=== PATIENT | female | born 1995 | race American Indian/Alaskan Native ===

== ENCOUNTER 2018-12-28 00:13 | Emergency (ER) | payer MEDICAID ==
[2018-12-28 00:48] VITALS: BMI 23.4
[2018-12-28 00:51] VITALS: BP 117/62; PULSE 73; RESP 13; TEMP 98.5
--- NOTE | 2018-12-28 01:04 | ED PDOC ---
Arrival/HPI - General Chief Complaint: Abnormal Skin Integrity Time Seen by Provider: 12/28/18 00:16 Historian: Patient - History of Present Illness Narrative History of Present Illness (Text): 12/28/18 00:56 23 y/o female, no significant pmh, nkda, c/o rt. pubic abscess x 3 days. Pt. stated that it started off as a small pimple, growing into painful abscess, no fever or chills, no night sweat, no rash, no numbness or tingling, no vaginal bleeding or discharge, no other medical or psychological complaints. Past Medical History - Provider Review Nursing Documentation Reviewed: Yes - Genitourinary/Gynecological Other/Comment: oavarian cyst - Psychiatric Hx Psychophysiologic Disorder: No Hx Substance Use: No - Anesthesia Hx Anesthesia: No Family/Social History - Physician Review Nursing Documentation Reviewed: Yes Family/Social History: Unknown Family HX Smoking Status: Unknown If Ever Smoked Hx Alcohol Use: No Hx Substance Use: No Allergies/Home Meds Allergies/Adverse Reactions: Allergies No Known Allergies Allergy (Verified 12/28/18 00:48) Review of Systems - Review of Systems Constitutional: absent: Fatigue, Fevers Eyes: absent: Vision Changes ENT: absent: Hearing Changes Respiratory: absent: SOB, Cough Cardiovascular: absent: Chest Pain Gastrointestinal: absent: Abdominal Pain, Diarrhea, Nausea, Vomiting Skin: Skin Lesions, Abscess. absent: Rash, Pruritis, Laceration, Ulcer, Cellulitis Neurological: absent: Headache, Dizziness Psychiatric: absent: Anxiety, Depression, Suicidal Ideation Physical Exam Vital Signs Reviewed: Yes Vital Signs Temp Pulse Resp BP Pulse Ox 12/28/18 00:50 98.5 F 73 13 117/62 10 L Temperature: Afebrile Blood Pressure: Normal Pulse: Regular Respiratory Rate: Normal Appearance: Positive for: Well-Appearing, Non-Toxic, Comfortable Pain Distress: Mild Mental Status: Positive for: Alert and Oriented X 3 - Systems Exam Head: Present: Atraumatic, Normocephalic Pupils: Present: PERRL Extroacular Muscles: Present: EOMI Conjunctiva: Present: Normal Mouth: Present: Moist Mucous Membranes Neck: Present: Normal Range of Motion Respiratory/Chest: Present: Clear to Auscultation, Good Air Exchange. No: Respiratory Distress, Accessory Muscle Use Cardiovascular: Present: Regular Rate and Rhythm, Normal S1, S2. No: Murmurs Abdomen: No: Tenderness, Distention, Peritoneal Signs Back: Present: Normal Inspection Upper Extremity: Present: Normal Inspection. No: Cyanosis, Edema Lower Extremity: Present: Normal Inspection. No: Edema Neurological: Present: GCS=15, CN II-XII Intact, Speech Normal Skin: Present: Warm, Dry, Rashes (rt. lateral pubic region noted to have [id number] fluctuancy abscess noted, no streaking or ulcers), Normal Color Psychiatric: Present: Alert, Oriented x 3, Normal Insight, Normal Concentration Medical Decision Making ED Course and Treatment: 12/28/18 01:05 -urine hcg -clindamycin -I&D 12/28/18 01:29 PROCEDURE: INCISION & DRAINAGE Performed by the emergency provider Indication: Abscess Location: rt. lateral pubic Preparation: The area was prepped and draped in the usual sterile fashion and was cleansed with betadine, clean with normal saline. Local infiltration of Lidocaine 1% with 1cc as used for anesthesia. Procedure: The most fluctuant portion of the abscess was incised with a #11 scalpel. Approximately 2 mL of was obtained. The abscess was packed 1/4" packing inserted. A dressing was applied by the RN. Post-Procedure: On exam the abscess is notably less fluctuant. The patient tolerated the procedure well, and there were no complications. -Urine hcg is negative -Discharge home with clindamycin, motrin, keep the dressing dry and clean, dressing and packing needs to be changed and checked in 2 days, return to the ER for any new or worsening signs or symptoms. - PA / MACHINE STEMMER / Resident Statement /DO has reviewed & agrees with the documentation as recorded. Disposition/Present on Arrival - Present on Arrival Any Indicators Present on Arrival: No History of DVT/PE: No History of Uncontrolled Diabetes: No Urinary Catheter: No History of Decub. Ulcer: No History Surgical Site Infection Following: None - Disposition Have Diagnosis and Disposition been Completed?: Yes Diagnosis: Abscess Disposition: HOME/ ROUTINE Disposition Time: :05 Patient Plan: Discharge Condition: IMPROVED Additional Instructions: -Discharge home with clindamycin, motrin, keep the dressing dry and clean, dressing and packing needs to be changed and checked in 2 days, return to the ER for any new or worsening signs or symptoms. Prescriptions: Clindamycin [Cleocin] 300 mg PO QID #28 cap Ibuprofen [Motrin] 600 mg PO QID PRN #30 tab PRN Reason: Other Referrals: Tashi Benitez MD [Staff Provider] - Follow up with primary [facility] [Outside] - Follow up with primary Forms: [employer] (Mongolian), WORK NOTE
[2018-12-28 01:44] VITALS: O2SAT 100
== END 2018-12-28 03:19 | disposition home or self-care (01) ==
LOC: ED 00:13
DX: L02.219 Cutaneous abscess of trunk, unspecified (principal)

== ENCOUNTER 2018-12-30 13:42 | Emergency (ER) | payer MEDICAID ==
[2018-12-30 13:57] VITALS: BP 104/73; PULSE 74; RESP 18; TEMP 98.5; O2SAT 96; BMI 23.0
--- NOTE | 2018-12-30 16:02 | ED PDOC ---
Arrival/HPI - General Chief Complaint: Medical Clearance Time Seen by Provider: 12/30/18 13:43 Historian: Patient - History of Present Illness Narrative History of Present Illness (Text): 12/30/18 15:58 A 23 year old female presents to the emergency department complaining of wound check. Patient had an I&D performed on abscess to the suprapubic region 2 days ago and was prescribed antibiotics. Patient any other complaints at this time. Past Medical History - Provider Review Nursing Documentation Reviewed: Yes - Infectious Disease Hx of Infectious Diseases: None - Genitourinary/Gynecological Other/Comment: oavarian cyst - Psychiatric Hx Psychophysiologic Disorder: No Hx Substance Use: No - Anesthesia Hx Anesthesia: No Family/Social History - Physician Review Nursing Documentation Reviewed: Yes Family/Social History: No Known Family HX Smoking Status: Unknown If Ever Smoked Hx Alcohol Use: No Hx Substance Use: No Allergies/Home Meds Allergies/Adverse Reactions: Allergies No Known Allergies Allergy (Verified 12/28/18 00:48) Review of Systems - Physician Review All systems were reviewed & negative as marked: Yes - Review of Systems Constitutional: absent: Fevers Skin: Other (wound check, no drainage) Physical Exam Vital Signs Reviewed: Yes Vital Signs Temp Pulse Resp BP Pulse Ox 12/30/18 13:56 98.5 F 74 18 104/73 96 Temperature: Afebrile Blood Pressure: Normal Pulse: Regular Respiratory Rate: Normal Appearance: Positive for: Well-Appearing, Non-Toxic, Comfortable Pain Distress: None Mental Status: Positive for: Alert and Oriented X 3 - Systems Exam Skin: Present: Abscess (small abscess right of suprapubic region with I&D packing, no discharge noted) Psychiatric: Present: Alert, Oriented x 3, Normal Insight, Normal Concentration Medical Decision Making ED Course and Treatment: 12/30/18 16:00 Impression: 23 year old female with wound check. Physical exam shows small abscess to right suprapubic region with I&D packing, no discharge noted. Plan: -- Reassess and disposition Progress Notes: 12/30/18 16:01 Packing was removed and wound checked. Patient has been strongly advised to take the antibiotics prescribed to her 2 days ago. Patient is to follow-up with clinic at the end of the week. - Scribe Statement The provider has reviewed the documentation as recorded by the Aimee Mcmahan Provider Scribe Attestation: All medical record entries made by the Scribe were at my direction and personally dictated by me. I have reviewed the chart and agree that the record accurately reflects my personal performance of the history, physical exam, medical decision making, and the department course for this patient. I have also personally directed, reviewed, and agree with the discharge instructions and disposition. Disposition/Present on Arrival - Present on Arrival Any Indicators Present on Arrival: No History of DVT/PE: No History of Uncontrolled Diabetes: No Urinary Catheter: No History of Decub. Ulcer: No History Surgical Site Infection Following: None - Disposition Have Diagnosis and Disposition been Completed?: Yes Diagnosis: Visit for wound check Disposition: HOME/ ROUTINE Disposition Time: 14:20 Condition: GOOD Discharge Instructions (ExitCare): Wound Care (DC) Additional Instructions: LOUIS GALLAGHER, thank you for letting us take care of you today. The emergency medical care you received today was directed at your acute symptoms. If you were prescribed any medication, please fill it and take as directed. It may take several days for your symptoms to resolve. Return to the Emergency Department if your symptoms worsen, do not improve, or if you have any other problems. Please contact your doctor or call one of the physicians/clinics you have been referred to that are listed on the Patient Visit Information form that is included in your discharge packet. Bring any paperwork you were given at discharge with you along with any medications you are taking to your follow up visit. Our treatment cannot replace ongoing medical care by a primary care provider outside of the emergency department. Thank you for allowing the [facility] team to be part of your care today. TAKE YOUR ANTIBIOTICS THAT YOU WERE ALREADY PRESCRIBED. Follow up with our clinic by the end of the week for re-evaluation and further management. Referrals: [facility] [Outside] - Follow up with primary Cinthya Uribe MD [Medical Doctor] - Follow up with primary Forms: [employer] (Indonesian)
== END 2018-12-30 14:58 | disposition home or self-care (01) ==
LOC: ED 13:42
DX: Z48.00 Encounter for change or removal of nonsurgical wound dressing (principal)

== ENCOUNTER 2019-01-06 05:49 | Emergency (ER) | payer MEDICAID ==
[2019-01-06 05:49] VITALS: BMI 23.0
--- NOTE | 2019-01-06 06:12 | ED PDOC ---
Arrival/HPI - General Chief Complaint: Back Pain Time Seen by Provider: 01/06/19 06:08 Historian: Patient - History of Present Illness Narrative History of Present Illness (Text): 01/06/19 06:08 Danie Ribeiro is a 23 year old female, with no significant past medical history, who presents to the ED complaining of intermittent right lower back pain for the past week, worse today. Patient notes back pain is worsened with moving and bending. Patient reports no heavy lifting/strenuous activity, does note she carries her young daughter frequently. Patient denies any fever, chills, nausea, vomiting, urinary symptoms, or any other complaints. Symptom Onset: Gradual Symptom Course: Unchanged Activities at Onset: Light Context: Home Past Medical History - Provider Review Nursing Documentation Reviewed: Yes - Infectious Disease Hx of Infectious Diseases: None - Genitourinary/Gynecological Other/Comment: ovarian cyst - Psychiatric Hx Psychophysiologic Disorder: No Hx Substance Use: No - Anesthesia Hx Anesthesia: No Family/Social History - Physician Review Nursing Documentation Reviewed: Yes Family/Social History: Unknown Family HX Smoking Status: Never Smoked Hx Alcohol Use: No Hx Substance Use: No Allergies/Home Meds Allergies/Adverse Reactions: Allergies No Known Allergies Allergy (Verified 01/06/19 06:03) Review of Systems - Physician Review All systems were reviewed & negative as marked: Yes - Review of Systems Constitutional: Normal. absent: Fevers Eyes: Normal ENT: Normal Respiratory: Normal. absent: SOB, Cough Cardiovascular: Normal. absent: Chest Pain Gastrointestinal: Normal. absent: Abdominal Pain, Diarrhea, Nausea, Vomiting Genitourinary Female: Normal. absent: Dysuria, Frequency, Hematuria, Urine Output Changes Musculoskeletal: Back Pain. absent: Neck Pain Skin: Normal. absent: Rash Neurological: Normal. absent: Headache, Dizziness Endocrine: Normal Hemo/Lymphatic: Normal Psychiatric: Normal Physical Exam Vital Signs Reviewed: Yes Vital Signs Pulse Resp BP Pulse Ox 01/06/19 06:00 79 15 107/54 L 98 Temperature: Afebrile Blood Pressure: Normal Pulse: Regular Respiratory Rate: Normal Appearance: Positive for: Well-Appearing, Non-Toxic, Comfortable Pain Distress: None Mental Status: Positive for: Alert and Oriented X 3 - Systems Exam Head: Present: Atraumatic, Normocephalic Pupils: Present: PERRL Extroacular Muscles: Present: EOMI Conjunctiva: Present: Normal Mouth: Present: Moist Mucous Membranes Neck: Present: Normal Range of Motion Respiratory/Chest: Present: Clear to Auscultation, Good Air Exchange. No: Respiratory Distress, Accessory Muscle Use Cardiovascular: Present: Regular Rate and Rhythm, Normal S1, S2. No: Murmurs Abdomen: No: Tenderness, Distention, Peritoneal Signs Back: Present: CVA Tenderness (Right CVA tenderness). No: Midline Tenderness, Paraspinal Tenderness Upper Extremity: Present: Normal Inspection. No: Cyanosis, Edema Lower Extremity: Present: Normal Inspection. No: Edema Neurological: Present: GCS=15, CN II-XII Intact, Speech Normal Skin: Present: Warm, Dry, Normal Color. No: Rashes Psychiatric: Present: Alert, Oriented x 3, Normal Insight, Normal Concentration Medical Decision Making ED Course and Treatment: 01/06/19 06:08 Impression: 23 year old female complaining of intermittent right lower back pain for 1 week, worse today. Plan: -- Labs -- Urinalysis -- Reassess and disposition Prior Visits: Notes and results from previous visits were reviewed. Progress Notes: - Scribe Statement The provider has reviewed the documentation as recorded by the Aimee Valdez Provider Scribe Attestation: All medical record entries made by the Scribe were at my direction and personally dictated by me. I have reviewed the chart and agree that the record accurately reflects my personal performance of the history, physical exam, medical decision making, and the department course for this patient. I have also personally directed, reviewed, and agree with the discharge instructions and disposition. Disposition/Present on Arrival - Present on Arrival Any Indicators Present on Arrival: No History of DVT/PE: No History of Uncontrolled Diabetes: No Urinary Catheter: No History of Decub. Ulcer: No History Surgical Site Infection Following: None - Disposition Have Diagnosis and Disposition been Completed?: Yes Diagnosis: Constipation, Flank pain Disposition: HOME/ ROUTINE Disposition Time: 07:00 Condition: STABLE Discharge Instructions (ExitCare): Constipation in Adults, Flank Pain Prescriptions: Docusate [Colace] 100 mg PO BID #30 cap Ibuprofen [Motrin] 1 tab PO Q6 #30 tab Forms: [employer] (Tajik)
[2019-01-06 06:31] VITALS: TEMP 98.1
[2019-01-06 06:53] LABS: BASO # 0.02 K/mm3 (0.0-2.0); BASO % 0.5 % (0.0-3.0); EOS # 0.2 (0.0-0.7); EOS % 3.5 % (1.5-5.0); HEMOGLOBIN 9.8 g/dL (12.0-16.0); LYMPH # 1.8 (1.2-3.4); LYMPH % 41.4 % (22.0-35.0); MEAN CELL VOLUME 86.6 fl (80.0-105.0); MEAN CORPUSCULAR HEMOGLOBIN 27.3 pg (25.0-35.0); MEAN CORPUSCULAR HGB CONC 31.5 g/dl (31.0-37.0); MEAN PLATELET VOLUME 9.7 fl (7.0-11.0); MONO # 0.3 (0.1-0.6); MONO % 6.8 % (1.0-6.0); RBC 3.59 10^6/uL (3.5-6.1); WHITE BLOOD COUNT 4.3 10^3/uL (4.5-11.0)
[2019-01-06 07:01] LABS: ALB/GLOB RATIO 1.2 (1.1-1.8); ALBUMIN 4.1 g/dL (3.0-4.8); ALT/SGPT 21 U/L (7-56); AST/SGOT 19 U/L (14-36); BLOOD UREA NITROGEN 16 mg/dL (7-21); CALCIUM 9.4 mg/dL (8.4-10.5); GFR NON-AFRICAN AMERICAN > 60
[2019-01-06 07:45] VITALS: RESP 18
[2019-01-06 07:52] LABS: URINE BILIRUBIN NEGATIVE (NEGATIVE); URINE BLOOD NEGATIVE (NEGATIVE); URINE GLUCOSE (UA) NEGATIVE (NEGATIVE); URINE LEUKOCYTE ESTERASE NEGATIVE Leu/uL (NEGATIVE); URINE PROTEIN NEGATIVE mg/dL (<30 mg/dL)
[2019-01-06 08:03] LABS: URINE APPEARANCE CLEAR (CLEAR); URINE COLOR YELLOW (YELLOW)
--- NOTE | 2019-01-06 09:19 | CT ---
Date of service: 01/06/2019 PROCEDURE: CT Abdomen and Pelvis without intravenous contrast HISTORY: R flank pain COMPARISON: None. TECHNIQUE: Contiguous images were obtained from the domes of the diaphragms to the upper thighs without the administration of intravenous contrast. Oral contrast was not administered. Radiation dose: Total exam DLP = 223.8 mGy-cm. This CT exam was performed using one or more of the following dose reduction techniques: Automated exposure control, adjustment of the mA and/or kV according to patient size, and/or use of iterative reconstruction technique. FINDINGS: LOWER THORAX: Unremarkable. LIVER: Unremarkable. No gross lesion or ductal dilatation. GALLBLADDER AND BILE DUCTS: Unremarkable. PANCREAS: Unremarkable. No gross lesion or ductal dilatation. SPLEEN: Unremarkable. ADRENALS: Unremarkable. No mass. KIDNEYS AND URETERS: Multiple tiny nonobstructive calculi bilaterally. Additional high density areas may be within the medullary pyramids. No hydronephrosis. No solid mass. VASCULATURE: Unremarkable. No aortic aneurysm. No aortic atherosclerotic calcification or mural plaque present. BOWEL: Unremarkable. No obstruction. No gross mural thickening. APPENDIX: Unremarkable. Normal appendix. PERITONEUM: Unremarkable. No free fluid. No free air. LYMPH NODES: Unremarkable. No enlarged lymph nodes. BLADDER: Unremarkable. REPRODUCTIVE: Unremarkable. BONES: No acute fracture. OTHER FINDINGS: None. IMPRESSION: Bilateral tiny nonobstructive nephrolithiasis without obstructive uropathy or evidence of recently passed genitourinary calculus. Areas of high density in both kidneys bilaterally may be within the medullary pyramids.
--- NOTE | 2019-01-06 09:49 | ED PDOC ---
Physical Exam - Physical Exam Narrative Physical Exam (Text): Signed out to me at change of shift pending urine and CT. UA shows no blood. CT: FINDINGS: LOWER THORAX: Unremarkable. LIVER: Unremarkable. No gross lesion or ductal dilatation. GALLBLADDER AND BILE DUCTS: Unremarkable. PANCREAS: Unremarkable. No gross lesion or ductal dilatation. SPLEEN: Unremarkable. ADRENALS: Unremarkable. No mass. KIDNEYS AND URETERS: Multiple tiny nonobstructive calculi bilaterally. Additional high density areas may be within the medullary pyramids. No hydronephrosis. No solid mass. VASCULATURE: Unremarkable. No aortic aneurysm. No aortic atherosclerotic calcification or mural plaque present. BOWEL: Unremarkable. No obstruction. No gross mural thickening. APPENDIX: Unremarkable. Normal appendix. PERITONEUM: Unremarkable. No free fluid. No free air. LYMPH NODES: Unremarkable. No enlarged lymph nodes. BLADDER: Unremarkable. REPRODUCTIVE: Unremarkable. BONES: No acute fracture. OTHER FINDINGS: None. IMPRESSION: Bilateral tiny nonobstructive nephrolithiasis without obstructive uropathy or evidence of recently passed genitourinary calculus. Areas of high density in both kidneys bilaterally may be within the medullary pyramids. Patient feels better. Will discharge, f/u PMD, return to ED for worsening pain, fever, vomiting, dyspnea, or any other problem. Vital Signs Temp Pulse Resp BP Pulse Ox 01/06/19 07:44 69 18 107/65 100 01/06/19 06:30 98.1 F 73 13 105/69 100 01/06/19 06:00 79 15 107/54 L 98 Medical Decision Making - Lab Interpretations Lab Results: Total Bilirubin 0.4 mg/dL (0.2-1.3) 01/06/19 06:36 AST 19 U/L (14-36) 01/06/19 06:36 ALT 21 U/L (7-56) 01/06/19 06:36 Alkaline Phosphatase 69 U/L (38-126) 01/06/19 06:36 Total Protein 7.7 g/dL (5.8-8.3) 01/06/19 06:36 Albumin 4.1 g/dL (3.0-4.8) 01/06/19 06:36 Globulin 3.5 gm/dL 01/06/19 06:36 Albumin/Globulin Ratio 1.2 (1.1-1.8) 01/06/19 06:36 Urine Color Yellow (YELLOW) 01/06/19 07:47 Urine Appearance Clear (CLEAR) 01/06/19 07:47 Urine pH 6.0 (4.7-8.0) 01/06/19 07:47 Ur Specific [place] 1.025 (1.005-1.035) 01/06/19 07:47 Urine Protein Negative mg/dL (<30 mg/dL) 01/06/19 07:47 Urine Glucose (UA) Negative mg/dL (NEGATIVE) 01/06/19 07:47 Urine Ketones Negative mg/dL (NEGATIVE) 01/06/19 07:47 Urine Blood Negative (NEGATIVE) 01/06/19 07:47 Urine Nitrate Negative (NEGATIVE) 01/06/19 07:47 Urine Bilirubin Negative (NEGATIVE) 01/06/19 07:47 Urine Urobilinogen 1.0 E.U./dL (<1 E.U./dL) H 01/06/19 07:47 Ur Leukocyte Esterase Negative [place]/uL (NEGATIVE) 01/06/19 07:47 - RAD Interpretation Radiology Orders: 01/06/19 08:12 ABD & PELVIS W/O PO OR IV CONT [CT] Stat Disposition/Present on Arrival - Present on Arrival Any Indicators Present on Arrival: No History of DVT/PE: No History of Uncontrolled Diabetes: No Urinary Catheter: No History of Decub. Ulcer: No History Surgical Site Infection Following: None - Disposition Have Diagnosis and Disposition been Completed?: Yes Diagnosis: Constipation, Flank pain Disposition: HOME/ ROUTINE Disposition Time: 09:51 Patient Plan: Discharge Condition: STABLE Discharge Instructions (ExitCare): Constipation in Adults, Flank Pain Prescriptions: Docusate [Colace] 100 mg PO BID #30 cap Ibuprofen [Motrin] 1 tab PO Q6 #30 tab Forms: [employer] (Japanese)
[2019-01-06 10:13] VITALS: BP 112/78; PULSE 72; O2SAT 99
== END 2019-01-06 10:12 | disposition home or self-care (01) ==
LOC: ED 05:49
DX: K59.00 Constipation, unspecified (principal); R10.9 Unspecified abdominal pain